=== PATIENT | female | born 1955 ===

== ENCOUNTER 2020-01-08 15:53 | Emergency (ER) | payer BC ==
[~2020-01-08] VITALS: Ht 170.2 cm; Wt 110.0 kg
[2020-01-08 15:55] VITALS: BP 142/79
--- NOTE | 2020-01-08 16:19 | NUR ---
PT C/O RIGHT SIDE ABD PAIN STARTING 0400 THIS AM, DENIES RADIATING PAIN. FAMILY AT BEDSIDE. PT WHEELED TO RESTROOM BY FAMILY TO PROVIDE URINE SAMPLE.
[2020-01-08] MEDS ORDERED: HYDROcodone/APAP 5/325 TABLET PO ONE (16:30)
[2020-01-08] MEDS ORDERED: CYCLOBENZAPRINE 10 MG TABLET PO ONE (16:30)
[2020-01-08 16:41] LABS: BASOPHILS # (AUTO) 0.01 x10^3/uL (0-0.1); BASOPHILS % (AUTO) 0 % (0-1); EOSINOPHILS # (AUTO) 0.08 x10^3/uL (0-0.4); EOSINOPHILS % (AUTO) 1 % (1-7); LYMPHOCYTES # (AUTO) 1.63 x10^3/uL (1-3.4); LYMPHOCYTES % (AUTO) 16 % (22-44); MD NO; MEAN CORPUSCULAR HEMOGLOBIN 29.5 pg (27.0-34.8); MEAN CORPUSCULAR HGB CONC 33.1 g/dL (32.4-35.8); MEAN CORPUSCULAR VOLUME 89.1 fL (80-100); MEAN PLATELET VOLUME 9.3 fL (7.4-10.4); MONOCYTES # (AUTO) 0.19 x10^3/uL (0.2-0.8); MONOCYTES % (AUTO) 2 % (2-9); NEUTROPHILS # (AUTO) 8.23 x10^3/uL (1.8-6.8); NEUTROPHILS % (AUTO) 81 % (42-75); PLATELET COUNT 309 x10^3/uL (130-400)
[2020-01-08] MEDS ORDERED: CYCLOBENZAPRINE 10 MG TABLET ONE (16:43)
[2020-01-08] MEDS ORDERED: HYDROcodone/APAP 5/325 TABLET ONE (16:43)
[2020-01-08 16:54] LABS: ALBUMIN 3.5 g/dL (3.4-5.0); ANION GAP 7 mmol/L (5-15); CALCIUM 9.1 mg/dL (8.5-10.1); CHLORIDE 109 mmol/L (98-107)
[2020-01-08 16:58] LABS: ALANINE AMINOTRANSFERASE 34 U/L (12-78); ALKALINE PHOSPHATASE 116 U/L (45-117); BILIRUBIN,TOTAL 0.7 mg/dL (0.2-1.0); CREATININE 0.71 mg/dL (0.55-1.02); TOTAL PROTEIN 7.5 g/dL (6.4-8.2)
[2020-01-08 17:10] LABS: MICROSCOPIC INDICATED
[2020-01-08 17:11] LABS: CULTURE INDICATED? YES
--- NOTE | 2020-01-08 17:11 | NUR ---
[facility] ADMIN PER NOV. PT BACK FROM CT, SITTING IN WC.
--- NOTE | 2020-01-08 17:23 | NUR ---
ALL RESULTS ARE BACK AT THIS TIME. CHART UP FOR RECHECK.
== END 2020-01-08 19:25 | disposition home or self-care (01) ==
LOC: ED 16:39
DX: E11.65 Type 2 diabetes mellitus with hyperglycemia (principal); N30.00 Acute cystitis without hematuria; R10.9 Unspecified abdominal pain; I10 Essential (primary) hypertension; Z90.49 Acquired absence of other specified parts of digestive tract
CPT/HCPCS: 36415; 74176; 80053; 81001; 85025; 87077; 87086; 87186; 99284